=== PATIENT | male | born 1940 | race Caucasian/White ===

== ENCOUNTER 2018-08-16 15:18 | Inpatient (IN) | payer MEDICARE ==
[2018-08-16] MEDS ORDERED: IPRATROPIUM-ALBUTEROL 3 ML NEB INHALATION STA (16:36)
--- NOTE | 2018-08-16 16:51 | ED ---
General Adult HPI - General Chief complaint: Shortness of Breath Stated complaint: SOB Time Seen by Provider: 08/16/18 15:45 Source: patient, family, RN notes reviewed Mode of arrival: ambulatory Limitations: altered mental status, physical limitation - History of Present Illness Initial comments: Patient is a pleasant 78-year-old male presenting to the emergency Department with cough and difficulty in breathing. Symptoms have been occurring greater than the past week. Patient does have occasional sputum without significant color. No fevers. Patient has had some generalized weakness. Patient is having difficult time taking care of himself. Patient does have severe dementia. Majority of history is provided by family. - Related Data Home Medications Medication Instructions Recorded Confirmed Cyanocobalamin [Vitamin B-12 1,000 mcg PO Q84D 08/16/18 08/16/18 Injection] Ergocalciferol [Vitamin D2 50,000 unit PO Q7D 08/16/18 08/16/18 (DRISDOL)] Rosuvastatin [Crestor] 10 mg PO DAILY 08/16/18 08/16/18 Tamsulosin [Flomax] 0.4 mg PO DAILY 08/16/18 08/16/18 Vit A/Vit C/Vit E/Zinc/Copper 1 cap PO DAILY 08/16/18 08/16/18 [ICAPS SOFTGEL] Allergies Allergy/AdvReac Type Severity Reaction Status Date / Time No Known Allergies Allergy Verified 08/16/18 16:34 Review of Systems ROS Statement: Those systems with pertinent positive or pertinent negative responses have been documented in the HPI. ROS Other: All systems not noted in ROS Statement are negative. Constitutional: Denies: fever Eyes: Denies: eye pain ENT: Denies: ear pain Respiratory: Reports: cough, dyspnea Cardiovascular: Denies: chest pain Endocrine: Reports: fatigue Gastrointestinal: Denies: abdominal pain Genitourinary: Denies: dysuria Musculoskeletal: Denies: back pain Skin: Denies: rash Neurological: Denies: headache Past Medical History Past Medical History: COPD, Dementia Additional Past Medical History / Comment(s): nodule on spine, spot in his rt lung, AAA History of Any Multi-Drug Resistant Organisms: None Reported Past Surgical History: Hernia Repair Additional Past Surgical History / Comment(s): varicose veins Past Psychological History: No Psychological Hx Reported Smoking Status: Former smoker Past Alcohol Use History: None Reported Past Drug Use History: None Reported General Exam Limitations: altered mental status, physical limitation General appearance: alert, in no apparent distress Head exam: Present: atraumatic Eye exam: Present: normal appearance, PERRL ENT exam: Present: normal oropharynx Neck exam: Present: normal inspection Respiratory exam: Present: decreased breath sounds Cardiovascular Exam: Present: regular rate, normal rhythm GI/Abdominal exam: Present: soft. Absent: tenderness Extremities exam: Present: normal inspection. Absent: pedal edema, calf tenderness Neurological exam: Present: alert Psychiatric exam: Present: normal affect, normal mood Skin exam: Present: normal color Course Vital Signs 08/16/18 08/16/18 08/16/18 15:20 16:57 17:00 Temperature 97.2 F L Pulse Rate 64 57 L 60 Respiratory 18 20 Rate Blood Pressure 117/58 115/60 O2 Sat by Pulse 96 97 Oximetry 08/16/18 08/16/18 17:08 18:00 Temperature Pulse Rate 59 L 61 Respiratory 12 Rate Blood Pressure 113/66 O2 Sat by Pulse 97 Oximetry EKG Findings - EKG Comments: EKG Findings:: Sinus bradycardia 56. First 3 AV block MN of 216. QRS 90. QT 428. QTC 413. Left axis. Low QRS voltage. No acute ST change. Medical Decision Making - Medical Decision Making Patient reevaluated. Patient and family updated. Case was discussed with Dr. Malik, who will admit covering for hospital call. - Lab Data Result diagrams: 08/16/18 16:58 08/16/18 16:58 Lab Results 08/16/18 08/16/18 08/16/18 Range/Units 16:58 16:58 16:58 WBC 5.3 (3.8-10.6) k/uL RBC 4.61 (4.30-5.90) m/uL Hgb 14.0 (13.0-17.5) gm/dL Hct 42.2 (39.0-53.0) % MCV 91.6 (80.0-100.0) fL MCH 30.4 (25.0-35.0) pg MCHC 33.2 (31.0-37.0) g/dL RDW 13.9 (11.5-15.5) % Plt Count 212 (150-450) k/uL Neutrophils % 54 % Lymphocytes % 30 % Monocytes % 7 % Eosinophils % 7 % Basophils % 1 % Neutrophils # 2.9 (1.3-7.7) k/uL Lymphocytes # 1.6 (1.0-4.8) k/uL Monocytes # 0.4 (0-1.0) k/uL Eosinophils # 0.3 (0-0.7) k/uL Basophils # 0.1 (0-0.2) k/uL Sodium 142 (137-145) mmol/L Potassium 4.5 (3.5-5.1) mmol/L Chloride 108 H (98-107) mmol/L Carbon Dioxide 28 (22-30) mmol/L Anion Gap 6 mmol/L BUN 14 (9-20) mg/dL Creatinine 0.81 (0.66-1.25) mg/dL Est GFR (CKD-EPI)AfAm >90 (>60 ml/min/1.73 sqM) Est GFR (CKD-EPI)NonAf 84 (>60 ml/min/1.73 sqM) Glucose 100 H (74-99) mg/dL Calcium 9.4 (8.4-10.2) mg/dL Total Bilirubin 0.8 (0.2-1.3) mg/dL AST 23 (17-59) U/L ALT 11 L (21-72) U/L Alkaline Phosphatase 60 (38-126) U/L NT-Pro-B Natriuret Pep 387 pg/mL Total Protein 6.5 (6.3-8.2) g/dL Albumin 4.0 (3.5-5.0) g/dL - Radiology Data Radiology results: image reviewed (Chest x-ray shows atelectasis, no acute process ) Disposition Clinical Impression: Acute exacerbation of chronic obstructive airways disease Disposition: ADMITTED IP TO THIS HOSP Is patient prescribed a controlled substance at d/c from ED?: No Referrals: Eduardo Tejada MD [Primary Care Provider] - 1-2 days Decision Time: 19:31
[2018-08-16 17:10] LABS: Basophils # (A) 0.1 k/uL (0-0.2); Basophils % (A) 1 %; Eosinophils # (A) 0.3 k/uL (0-0.7); Eosinophils % (A) 7 %; HCT 42.2 % (39.0-53.0); Lymphocytes # (A) 1.6 k/uL (1.0-4.8); Lymphocytes % (A) 30 %; MCH 30.4 pg (25.0-35.0); MCHC 33.2 g/dL (31.0-37.0); MCV 91.6 fL (80.0-100.0); Monocytes # (A) 0.4 k/uL (0-1.0); Monocytes % (A) 7 %; Neutrophils # (A) 2.9 k/uL (1.3-7.7); Neutrophils % (A) 54 %; Platelet Count 212 k/uL (150-450); RBC 4.61 m/uL (4.30-5.90); RDW 13.9 % (11.5-15.5); WBC 5.3 k/uL (3.8-10.6)
[2018-08-16 17:17] LABS: ALT 11 U/L (21-72); AST 23 U/L (17-59); Alkaline Phosphatase 60 U/L (38-126); Anion Gap 6 mmol/L; Blood Urea Nitrogen 14 mg/dL (9-20); Calcium 9.4 mg/dL (8.4-10.2); Carbon Dioxide 28 mmol/L (22-30); Chloride 108 mmol/L (98-107); Glucose 100 mg/dL (74-99); Potassium 4.5 mmol/L (3.5-5.1); Sodium 142 mmol/L (137-145); Total Bilirubin 0.8 mg/dL (0.2-1.3); Total Protein 6.5 g/dL (6.3-8.2)
--- NOTE | 2018-08-16 17:48 | XR ---
EXAMINATION TYPE: XR chest 2V DATE OF EXAM: 08/16/2018 COMPARISON: NONE HISTORY: Difficulty breathing. Cough TECHNIQUE: Frontal and lateral views of the chest are obtained. FINDINGS: Heart is normal. There is some linear density at the left lung base. There is no heart pepper lure. Heart size is normal. Thoracic aorta is atheromatous. Bony thorax is intact. There is slight bl unting left costophrenic angle. IMPRESSION: Mild pleural reaction at the left lung base. No heart failure. Normal heart.
[2018-08-16] MEDS ORDERED: IPRATROPIUM-ALBUTEROL 3 ML NEB INHALATION PRN (19:32)
[2018-08-16] MEDS ORDERED: methylPREDNISolone SOD SUCCI 125 MG/2 ML VIAL IV STA (19:32)
[2018-08-16 21:26] VITALS: BMI 20.7
[2018-08-16] MEDS ORDERED: AZITHROMYCIN 500 MG TAB PO STA (22:01)
--- NOTE | 2018-08-16 22:16 | P.HPIM ---
History of Present Illness H&P Date: 08/16/18 Chief Complaint: Productive cough and trouble breathing 78-year-old male with advanced dementia and history of chronic bronchitis. Patient was brought into the hospital due to worsening cough productive of sputum picking consistency over the past week. No fevers reported no chills but family is reporting some trouble breathing especially at night when the patient lays down. Due to that he's been having rough nights and he spending most of the day sleeping with decreased energy and weakness. He's been having difficulties with activities of daily living. Patient denies any chest pain denies any fevers or chills denies any muscle aches. Chest x-ray in the ER showed pleural reaction at the left lung base which could be indicative of pneumonia. Patient is slightly confused unable to provide any meaningful history history was obtained mainly by talking to the family. There is no report of any GI bleeding. No report of hemoptysis. Patient doesn't use any assistive device for ambulation at home. Review of Systems Unable to obtain meaningful review of systems from the patient. Pertinent positive and negative are obtained by talking to the family as documented in HPI Past Medical History Past Medical History: COPD, Dementia Additional Past Medical History / Comment(s): nodule on spine, spot in his rt lung, AAA History of Any Multi-Drug Resistant Organisms: None Reported Past Surgical History: Hernia Repair Additional Past Surgical History / Comment(s): varicose veins Past Psychological History: No Psychological Hx Reported Smoking Status: Former smoker Past Alcohol Use History: None Reported Past Drug Use History: None Reported - Past Family History Family Family Medical History: No Reported History Medications and Allergies Home Medications Medication Instructions Recorded Confirmed Type Cyanocobalamin [Vitamin B-12 1,000 mcg PO Q84D 08/16/18 08/16/18 History Injection] Ergocalciferol [Vitamin D2 50,000 unit PO Q7D 08/16/18 08/16/18 History (DRISDOL)] Rosuvastatin [Crestor] 10 mg PO DAILY 08/16/18 08/16/18 History Tamsulosin [Flomax] 0.4 mg PO DAILY 08/16/18 08/16/18 History Vit A/Vit C/Vit E/Zinc/Copper 1 cap PO DAILY 08/16/18 08/16/18 History [ICAPS SOFTGEL] Allergies Allergy/AdvReac Type Severity Reaction Status Date / Time No Known Allergies Allergy Verified 08/16/18 16:34 Physical Exam Vitals: Vital Signs Temp Pulse Resp BP Pulse Ox 08/16/18 18:00 61 12 113/66 97 08/16/18 17:08 59 L 08/16/18 17:00 60 20 115/60 97 08/16/18 16:57 57 L 08/16/18 15:20 97.2 F L 64 18 117/58 96 Intake and Output 08/16/18 08/16/18 08/16/18 06:59 14:59 22:59 Intake Total 20 Balance 20 Intake: Amount of Fluid Infused ( 20 ml) Other: Weight 67.449 kg Constitutional: No acute distress, conversant, pleasant, patient disoriented Eyes: Anicteric sclerae, moist conjunctiva, no lid-lag Pupils equal round reactive to light ENMT: NC/AT Oropharynx clear, no erythema, or exudates Neck: Supple, FROM, no masses, or JVD No carotid bruits No thyromegaly Lungs: Diminished breath sounds throughout, prolonged expiratory phase no wheezing , fine inspiratory rales at bilateral lung basis Clear to percussion Normal respiratory effort, no accessory muscle use Cardiovascular: Heart regular in rate and rhythm, No murmurs, gallops, or rubs No peripheral edema Abdominal: Soft Nontender, no guarding, rebound or rigidity Abdomen moving with respiration Normoactive bowel sounds No hepatomegaly, No splenomegaly No palpable mass No abdominal wall hernia noted Skin: Normal temperature, tone, texture, turgor No induration No subcutaneous nodules No rash, lesions No ulcers Extremities: No digital cyanosis No clubbing Pedal pulses intact and symmetrical Radial pulses intact and symmetrical No calf tenderness Psychiatric: Alert and oriented to person,, initially disoriented to time and place but with suggestion he became oriented to place Appropriate affect Neuro Muscles Strength 4/5 in all 4 extremities Sensation to light touch grossly present throughout Cranial nerves II-XII grossly intact No focal sensory deficits Lymphatics: no palpable cervical or supraclavicular , or inguinal lymph nodes Results CBC & Chem 7: 08/16/18 16:58 08/16/18 16:58 Labs: Abnormal Lab Results - Last 24 Hours (Table) 08/16/18 Range/Units 16:58 Chloride 108 H (98-107) mmol/L Glucose 100 H (74-99) mg/dL ALT 11 L (21-72) U/L Thrombosis Risk Factor Assmnt - Choose All That Apply Any of the Below Risk Factors Present?: Yes Each Risk Factor Represents 3 Points: Age 75 years or older Thrombosis Risk Factor Assessment Total Risk Factor Score: 3 Thrombosis Risk Factor Assessment Level: Moderate Risk Assessment and Plan Assessment: 78-year-old male with history of chronic bronchitis and advanced dementia Patient admitted as an inpatient with anticipated length of stay more than 48 hours due to acute exacerbation of chronic bronchitis with possible underlying pneumonia, patient also have severe advanced dementia with difficulties in ac tivities of daily living Plan: Acute exacerbation of chronic bronchitis due to possible underlying atypical pneumonia, risk factor includes advanced age and some confusion DuoNeb's when necessary Follow-up sputum culture IV Solu-Medrol Azithromycin for atypical pneumonia Tylenol when necessary for fevers or pain Chest x-ray showed pleural reaction/thickening over the left lung base Assessment for home oxygen requirement prior to discharge Severe advanced dementia PT/OT for evaluation regarding difficulties with activities of daily living DVT prophylaxis heparin subcu 3 times a day BPH continue Flomax Surrogate decision-maker: Patient CODE STATUS: Full code Discussed with: Patient, ER, RN Anticipated discharge: 48-[address]: Pending PT/OT evaluation A total of 60 minutes was spent on the care of this complex patient more than 50% of the time was spent in counseling and care coordination.
[2018-08-16] MEDS: HEPARIN SODIUM,PORCINE 5,000 UNIT/ML 1 ML VIAL SQ SCH (22:42)
[2018-08-16] MEDS: methylPREDNISolone SOD SUCCI 125 MG/2 ML VIAL IV SCH (22:42)
[2018-08-16] MEDS: IPRATROPIUM-ALBUTEROL 3 ML NEB INHALATION SCH (23:57)
[2018-08-17] MEDS: methylPREDNISolone SOD SUCCI 125 MG/2 ML VIAL IV SCH ×2 (05:29→11:47)
[2018-08-17] MEDS: IPRATROPIUM-ALBUTEROL 3 ML NEB INHALATION SCH ×3 (07:46→17:00)
--- NOTE | 2018-08-17 08:30 | P.PN ---
Subjective Progress Note Date: 08/17/18 Principal diagnosis: Confusion, cough 78-year-old male with PMH of COPD and advanced dementia presents the ED for worsening confusion and cough productive of sputum over the past week. Patient was seen and examined. Sitter is at bedside. He is observed eating breakfast comfortably. He has no complaints this morning. He denies any chest pain, shortness of breath or palpitations. Objective - Vital Signs Vital signs: Vital Signs Temp 97.9 F 08/17/18 06:00 Pulse 72 08/17/18 07:56 Resp 18 08/17/18 06:00 BP 142/67 08/17/18 06:00 Pulse Ox 97 08/17/18 06:00 Intake & Output 08/16/18 08/17/18 08/17/18 18:59 06:59 18:59 Intake Total 520 Balance 520 Weight 67.449 kg Intake: Amount of Fluid Infused ( 20 ml) Oral 500 Other: # Voids 1 - Exam General: [non toxic], [no distress], [appears at stated age] Derm: [warm], [dry] Head: [atraumatic], [normocephalic], [symmetric] Eyes: [EOMI], [no lid lag], [anicteric sclera] Mouth: [no lip lesion], [mucus membranes moist] Cardiovascular: [S1S2 reg], [no murmur], [positive DP pulse bilateral] Lungs: [CTA bilateral], [no rhonchi, no rales] , [no accessory muscle use] Abdominal: [soft], [ nontender to palpation], [no guarding], [no appreciable organomegaly] Ext: [no gross muscle atrophy], [no edema], [no contractures] Neuro: [no focal neuro deficits] Psych: [Pleasantly confused, redirectable] - Labs CBC & Chem 7: 08/16/18 16:58 08/16/18 16:58 Labs: Abnormal Lab Results - Last 24 Hours (Table) 08/16/18 Range/Units 16:58 Chloride 108 H (98-107) mmol/L Glucose 100 H (74-99) mg/dL ALT 11 L (21-72) U/L Assessment and Plan Assessment: Assessment and Plan 78-year-old male with PMH of chronic bronchitis and advanced dementia presenting to the ED for increased confusion and cough productive of sputum. 1. Acute exacerbation of chronic bronchitis possibly secondary to atypical pn eum[place] 2. Atypical pneumonia 3. Severe advanced dementia with worsening confusion 1. Patient is afebrile with no leukocytosis. Has cough that is productive, changed from baseline. Chest x-ray shows mild pleural reaction in the left lung base, possible pneumonia. Plan: Antibiotics by mouth for treatment of atypical pneumonia. Start Solu-Medrol 60 mg IV every 6 hours. DuoNeb scheduled and as needed for shortness of breath and wheezing. O2 per NC to maintain O2 saturation greater than 92%. 2. As seen on chest x-ray. Plan: Continue azithromycin by mouth. Treatment as above. 3. Family reports problems with ADLs and IADLs. Plan: Follow PT and OT recommendations. Fall precautions. Follow social work recommendations. Will discuss with family the extent of dementia workup and support at home. Follow B12, RPR and TSH. Patient admitted for increased confusion likely secondary to exacerbation of chronic bronchitis due to atypical pneumonia. Treatment for chronic bronchitis exacerbation and atypical pneumonia. Reversible spending. PT and OT consulted. Social work consulted.
[2018-08-17] MEDS: HEPARIN SODIUM,PORCINE 5,000 UNIT/ML 1 ML VIAL SQ SCH ×2 (08:50→16:15)
[2018-08-17] MEDS ORDERED: ATORVASTATIN 20 MG TAB PO SCH (09:00)
[2018-08-17] MEDS ORDERED: AZITHROMYCIN 250 MG TAB PO SCH (09:00)
[2018-08-17] MEDS ORDERED: TAMSULOSIN 0.4 MG CAP.ER.24H PO SCH (09:00)
[2018-08-17 11:30] LABS: Basophils % (A) 0 %; Eosinophils % (A) 0 %; HCT 40.2 % (39.0-53.0); Lymphocytes # (A) 0.5 k/uL (1.0-4.8); Lymphocytes % (A) 10 %; MCHC 32.4 g/dL (31.0-37.0); MCV 92.8 fL (80.0-100.0); Mean Platelet Volume 6.5; Monocytes # (A) 0.1 k/uL (0-1.0); Monocytes % (A) 1 %; Neutrophils # (A) 3.9 k/uL (1.3-7.7); Neutrophils % (A) 88 %; Platelet Count 208 k/uL (150-450); RBC 4.33 m/uL (4.30-5.90); WBC 4.4 k/uL (3.8-10.6)
[2018-08-17 11:42] LABS: ALT 12 U/L (21-72); AST 22 U/L (17-59); Alkaline Phosphatase 47 U/L (38-126); Anion Gap 9 mmol/L; Blood Urea Nitrogen 15 mg/dL (9-20); Calcium 9.6 mg/dL (8.4-10.2); Carbon Dioxide 23 mmol/L (22-30); Chloride 108 mmol/L (98-107); Glucose 167 mg/dL (74-99); Potassium 4.4 mmol/L (3.5-5.1); Sodium 140 mmol/L (137-145); Total Bilirubin 0.7 mg/dL (0.2-1.3); Total Protein 6.5 g/dL (6.3-8.2)
[2018-08-17 15:37] VITALS: PULSE 94; RESP 20; TEMP 97.7
[2018-08-17 15:41] VITALS: BP 125/76
--- NOTE | 2018-08-20 16:05 | P.DS ---
Providers Date of admission: 08/16/18 19:32 Expected date of discharge: 08/20/18 Attending physician: Sonny Ferrara MD Primary care physician: [facility] Course: 78-year-old male with advanced dementia and history of chronic bronchitis. Patient was brought into the hospital due to worsening cough productive of sputum picking consistency over the past week. No fevers reported no chills but family is reporting some trouble breathing especially at night when the patient lays down. Due to that he's been having rough nights and he spending most of the day sleeping with decreased energy and weakness. He's been having difficulties with activities of daily living. Patient denies any chest pain denies any fevers or chills denies any muscle aches. Chest x-ray in the ER showed pleural reaction at the left lung base which could be indicative of pneumonia. Patient is slightly confused unable to provide any meaningful history history was obtained mainly by talking to the family. There is no report of any GI bleeding. No report of hemoptysis. Patient doesn't use any assistive device for ambulation at home. Patient was thought to have acute exacerbation of chronic bronchitis possibly secondary to atypical pneumonia. Patient was afebrile with no leukocytosis. Chest x-ray showed mild pleural reaction in the left lung base, possible pneumonia. His given azithromycin for treatment of atypical pneumonia. He was also started on DuoNeb and Solu-Medrol for treatment of COPD. Family had reported issues with patient performing his ADLs and IADLs. He was placed on fall precautions. Social work was consulted for placement. Decision was made by his to take patient home and to obtain outside help in order to take care of him. 1. Acute exacerbation of chronic bronchitis possibly secondary to atypical pneumonia 2. Atypical pneumonia 3. Severe advanced dementia with worsening confusion Pertinent Studies: Chest x-ray Patient Condition at Discharge: Fair Plan - Discharge Summary New Discharge Prescriptions: New Azithromycin [Zithromax] 250 mg PO DAILY #4 tab predniSONE 40 mg PO DAILY #8 tab Continue Tamsulosin [Flomax] 0.4 mg PO DAILY Rosuvastatin [Crestor] 10 mg PO DAILY Vit A/Vit C/Vit E/Zinc/Copper [ICAPS SOFTGEL] 1 cap PO DAILY Ergocalciferol [Vitamin D2 (DRISDOL)] 50,000 unit PO Q7D Cyanocobalamin [Vitamin B-12 Injection] 1,000 mcg PO Q84D Discharge Medication List Cyanocobalamin [Vitamin B-12 Injection] 1,000 mcg PO Q84D 08/16/18 [History] Ergocalciferol [Vitamin D2 (DRISDOL)] 50,000 unit PO Q7D 08/16/18 [History] Rosuvastatin [Crestor] 10 mg PO DAILY 08/16/18 [History] Tamsulosin [Flomax] 0.4 mg PO DAILY 08/16/18 [History] Vit A/Vit C/Vit E/Zinc/Copper [ICAPS SOFTGEL] 1 cap PO DAILY 08/16/18 [History] Azithromycin [Zithromax] 250 mg PO DAILY #4 tab 08/17/18 [Rx] predniSONE 40 mg PO DAILY #8 tab 08/17/18 [Rx] Follow up Appointment(s)/Referral(s): Eduardo Tejada MD [Primary Care Provider] - 1-2 days (Please call and schedule appointment on SUNDAY) Patient Instructions/Handouts: Dementia (GEN), Fall Prevention for Older Adults (DC) Activity/Diet/Wound Care/Special Instructions: Diet: Regular Follow-up with PCP within 1-2 days of discharge. Please take all medications as advised. Discharge Disposition: HOME SELF-CARE
== END 2018-08-17 17:22 | disposition home or self-care (01) | DRG 194 ==
LOC: EC 15:18 → 4MS4W 19:32 → OBSVTOIN 19:32 → 4MS4W 20:26
PROVIDERS: ADMIT Internal Medicine; ATTEND Internal Medicine
DX: J18.9 Pneumonia, unspecified organism (principal); J44.0 Chronic obstructive pulmonary disease with (acute) lower respiratory infection; J44.1 Chronic obstructive pulmonary disease with (acute) exacerbation; F03.90 Unspecified dementia, unspecified severity, without behavioral disturbance, psychotic disturbance, mood disturbance, and anxiety; N40.0 Benign prostatic hyperplasia without lower urinary tract symptoms; Z79.899 Other long term (current) drug therapy; Z87.891 Personal history of nicotine dependence
CPT/HCPCS: 36415; 71046; 80053; 83880; 85025; 93005; 94640; 99285

== ENCOUNTER → 2019-07-28 | Outpatient (CLI) | payer MEDICARE ==
[2019-07-28 19:15] LABS: HCT 38.4 % (39.0-53.0); HGB 12.5 gm/dL (13.0-17.5); Hypochromasia Slight; MCH 31.3 pg (25.0-35.0); MCHC 32.5 g/dL (31.0-37.0); MCV 96.4 fL (80.0-100.0); Mean Platelet Volume 7.7; Platelet Count 198 k/uL (150-450); RBC 3.98 m/uL (4.30-5.90); RDW 13.8 % (11.5-15.5); WBC 5.2 k/uL (3.8-10.6)
[2019-07-28 19:20] LABS: ALT 24 U/L (4-49); AST 34 U/L (17-59); African American GFR (CKD) >90 (>60 ml/min/1.73 sqM); Alkaline Phosphatase 82 U/L (38-126); Anion Gap 6 mmol/L; Blood Urea Nitrogen 16 mg/dL (9-20); Calcium 9.3 mg/dL (8.4-10.2); Carbon Dioxide 29 mmol/L (22-30); Chloride 103 mmol/L (98-107); Glucose 109 mg/dL (74-99); Non-African American GFR(CKD) 89 (>60 ml/min/1.73 sqM); Potassium 4.4 mmol/L (3.5-5.1); Sodium 138 mmol/L (137-145); Total Bilirubin 0.5 mg/dL (0.2-1.3)
== END | disposition home or self-care (01) ==
LOC: LABMEDISNF 19:03 → LABPRL 19:03 → EDSTATUS 19:08
PROVIDERS: ATTEND Internal Medicine
DX: J44.9 Chronic obstructive pulmonary disease, unspecified (principal); G30.1 Alzheimer's disease with late onset
CPT/HCPCS: 36415; 80053; 85027